=== PATIENT | female | born 1990 | race Caucasian/White ===

== ENCOUNTER 2018-11-24 19:29 | Emergency (ER) | payer SELFPAY ==
[2018-11-24 20:48] LABS: Urine Blood NEGATIVE (NEG); Urine Glucose NEGATIVE (NEG); Urine Protein NEGATIVE (NEG); Urine Specific Gravity >1.030 (1.005-1.030)
[2018-11-24] MEDS ORDERED: SMZ./TMP. 800/160 MG TABLET ONE (21:24)
[2018-11-24] MEDS ORDERED: KETOROLAC 30 MG/ML INJ ONE (21:24)
[2018-11-24] MEDS ORDERED: DOXYCYCLINE 100 MG CAP PO ONE (21:25)
--- NOTE | 2018-11-24 21:25 | ER ---
Nurse's Notes [facility] Name: Regine Goss Age: 28 yrs Sex: Female : 1990 Arrival Date: 11/24/2018 Time: 19:33 Bed 17 Private MD: Diagnosis: Headache;Cellulitis of head [any part, except face]-bites;Urinary tract infection, site not specified Presentation: 11/24 19:47 Presenting complaint: Patient states: "I've been having a lot of headaches, I'm hungry aj1 non-stop and my feet are swelling, but I can't get because my tubes are tied" LMP 10/22/18. Transition of care: patient was not received from another setting of care. Onset of symptoms was November 24, 2018. Risk Assessment: Do you want to hurt yourself or someone else? Patient reports no desire to harm self or others. Initial Sepsis Screen: Does the patient meet any 2 criteria? No. Patient's initial sepsis screen is negative. Does the patient have a suspected source of infection? No. Patient's initial sepsis screen is negative. Care prior to arrival: None. 19:47 Method Of Arrival: Ambulatory aj1 19:47 Acuity: ROHIT 3 aj1 Triage Assessment: 19:48 Headache History: Denies prior headaches. General: Appears in no apparent distress. aj1 uncomfortable, Behavior is calm, cooperative, appropriate for age. Pain: Complains of pain in forehead and occipital area Pain currently is 8 out of 10 on a pain scale. Pain began 2 weeks Also complains of no other associated symptoms. Neuro: Level of Consciousness is awake, alert, obeys commands, Oriented to person, place, time, situation, Moves all extremities. Full function Gait is steady, Speech is normal, Facial symmetry appears normal, Reports headache. Cardiovascular: Patient's skin is warm and dry. Respiratory: Airway is patent Respiratory effort is even, unlabored, Respiratory pattern is regular, symmetrical. 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 - Social history:: Smoking status: Patient uses tobacco products, 1-2 cigarettes per day. - Ebola Screening: : Patient denies travel to an Ebola-affected area in the 21 days before illness onset. - Family history:: not pertinent. Screenin:47 Abuse screen: Denies threats or abuse. Nutritional screening: No deficits noted. jd3 Tuberculosis screening: No symptoms or risk factors identified. Fall Risk Ambulatory Aid- None/Bed Rest/Nurse Assist (0 pts). Gait- Normal/Bed Rest/Wheelchair (0 pts) Mental Status- Oriented to own ability (0 pts). Total Martin Fall Scale indicates No Risk (0-24 pts). Assessment: 20:46 General: Appears in no apparent distress. uncomfortable, Behavior is calm, cooperative, jd3 appropriate for age. Pain: Complains of pain in head Quality of pain is described as aching, pressure. Neuro: Level of Consciousness is awake, alert, obeys commands, Oriented to person, place, time, situation, Moves all extremities. Full function Pupils are PERRLA, Denies weakness blurred vision dizziness, numbness. Cardiovascular: Denies chest pain, Heart tones S1 S2 present Capillary refill < 3 seconds Patient's skin is warm and dry. Respiratory: Airway is patent Respiratory effort is even, unlabored, Respiratory pattern is regular, symmetrical, Breath sounds are clear bilaterally. Denies cough, shortness of breath. GI: Abdomen is round non-distended, Bowel sounds present X 4 quads. Abd is soft and non tender X 4 quads. Reports nausea, Patient currently denies diarrhea, vomiting. : No signs and/or symptoms were reported regarding the genitourinary system. EENT: No signs and/or symptoms were reported regarding the EENT system. Derm: Skin is intact, Skin is dry, Skin is normal, Skin temperature is warm. Musculoskeletal: Circulation, motion, and sensation intact. Range of motion: intact in all extremities. 21:50 Reassessment: Patient appears in no apparent distress at this time. Patient and/or jd3 family updated on plan of care and expected duration. Pain level reassessed. Patient is alert, oriented x 3, equal unlabored respirations, skin warm/dry/pink. Patient states feeling better. Patient states symptoms have improved. Vital Signs: 19:48 BP 113 / 72; Pulse 96; Resp 20; Temp 98.0; Pulse Ox 100% on R/A; Weight 70.31 kg (R); aj1 Height 5 ft. 9 in. (175.26 cm) (R); Pain 8/10; 19:48 Body Mass Index 22.89 (70.31 kg, 175.26 cm) aj ED Course: 19:33 Patient arrived in ED. ds1 19:48 Triage completed. aj1 19:50 Arm band placed on Patient placed in waiting room, Patient notified of wait time. aj1 20:39 Stuart Crystal MD is Attending Physician. barry 20:46 Reed Foster, DARIANA is Primary Nurse. jd3 20:48 Patient has correct armband on for positive identification. Bed in low position. Call jd3 light in reach. Side rails up X 1. 21:49 No provider procedures requiring assistance completed. Patient did not have IV access jd3 during this emergency room visit. Administered Medications: 21:30 Drug: TORadol 60 mg Route: IM; Site: right gluteus; jd3 21:49 Follow up: Response: No adverse reaction jd3 21:30 Drug: Bactrim (160 mg-800 mg (DS) 1 tablet Route: PO; jd3 21:49 Follow up: Response: No adverse reaction jd3 21:30 Drug: Doxycycline 200 mg Route: PO; jd3 21:49 Follow up: Response: No adverse reaction jd3 Outcome: 21:24 Discharge ordered by . barry 21:49 Discharged to home ambulatory. jd3 21:49 Condition: stable 21:49 Discharge instructions given to patient, Instructed on discharge instructions, follow up and referral plans. medication usage, Demonstrated understanding of instructions, follow-up care, medications, Prescriptions given X 3. 21:50 Patient left the ED. jd3 Signatures: Xiomy Gonzalez, RN RN aj1 Stuart Crystal MD MD cha Sanford, Demi ds1 Reed Foster RN RN jd3
--- NOTE | 2018-11-24 21:25 | EDPHYS ---
Physician Documentation [facility] Name: Regine Goss Age: 28 yrs Sex: Female : 1990 Arrival Date: 11/24/2018 Time: 19:33 Bed 17 Private MD: ED Physician Stuart Crystal HPI: 11/24 21:19 This 28 yrs old Female presents to ER via Ambulatory with complaints of barry Headache. 21:19 The patient complains of pain to the left side of the back of head, left occipital barry area, left base of the skull, right side of the back of head, right occipital area and right base of the skull. The patient describes the headache as aching. 21:19 unk. Onset: The symptoms/episode began/occurred 1 week(s) ago. The patient presents barry with cellulitis of the scalp. Possible cause(s): unknown. 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 - Social history:: Smoking status: Patient uses tobacco products, 1-2 cigarettes per day. - Ebola Screening: : Patient denies travel to an Ebola-affected area in the 21 days before illness onset. - Family history:: not pertinent. ROS: 21:19 Constitutional: Negative for fever, chills, and weight loss, Eyes: Negative for injury, barry pain, redness, and discharge, ENT: Negative for injury, pain, and discharge, Neck: Negative for injury, pain, and swelling, Cardiovascular: Negative for chest pain, palpitations, and edema, Respiratory: Negative for shortness of breath, cough, wheezing, and pleuritic chest pain, Abdomen/GI: Negative for abdominal pain, nausea, vomiting, diarrhea, and constipation, Back: Negative for injury and pain, : Negative for injury, bleeding, discharge, and swelling, MS/Extremity: Negative for injury and deformity, Psych: Negative for depression, anxiety, suicide ideation, homicidal ideation, and hallucinations, Allergy/Immunology: Negative for hives, rash, and allergies, Endocrine: Negative for neck swelling, polydipsia, polyuria, polyphagia, and marked weight changes, Hematologic/Lymphatic: Negative for swollen nodes, abnormal bleeding, and unusual bruising. 21:19 Skin: Positive for cellulitis. 21:19 Neuro: Positive for headache. Exam: 21:19 Constitutional: This is a well developed, well nourished patient who is awake, alert, barry and in no acute distress. Head/Face: Normocephalic, atraumatic. Eyes: Pupils equal round and reactive to light, extra-ocular motions intact. Lids and lashes normal. Conjunctiva and sclera are non-icteric and not injected. Cornea within normal limits. Periorbital areas with no swelling, redness, or edema. ENT: Nares patent. No nasal discharge, no septal abnormalities noted. Tympanic membranes are normal and external auditory canals are clear. Oropharynx with no redness, swelling, or masses, exudates, or evidence of obstruction, uvula midline. Mucous membranes moist. Neck: Trachea midline, no thyromegaly or masses palpated, and no cervical lymphadenopathy. Supple, full range of motion without nuchal rigidity, or vertebral point tenderness. No Meningismus. Chest/axilla: Normal chest wall appearance and motion. Nontender with no deformity. No lesions are appreciated. Cardiovascular: Regular rate and rhythm with a normal S1 and S2. No gallops, murmurs, or rubs. Normal PMI, no JVD. No pulse deficits. Respiratory: Lungs have equal breath sounds bilaterally, clear to auscultation and percussion. No rales, rhonchi or wheezes noted. No increased work of breathing, no retractions or nasal flaring. Abdomen/GI: Soft, non-tender, with normal bowel sounds. No distension or tympany. No guarding or rebound. No evidence of tenderness throughout. Back: No spinal tenderness. No costovertebral tenderness. Full range of motion. MS/ Extremity: Pulses equal, no cyanosis. Neurovascular intact. Full, normal range of motion. Neuro: Awake and alert, GCS 15, oriented to person, place, time, and situation. Cranial nerves II-XII grossly intact. Motor strength 5/5 in all extremities. Sensory grossly intact. Cerebellar exam normal. Normal gait. Psych: Awake, alert, with orientation to person, place and time. Behavior, mood, and affect are within normal limits. 21:19 Skin: cellulitis, that is minimal, scalp folliculitis, occipital region. 21:27 Neck: ROM/movement: is normal, no acute changes, Meningeal signs: are not present, [facility] Kernig's sign is negative, Brudzinski's sign is negative. Vital Signs: 19:48 BP 113 / 72; Pulse 96; Resp 20; Temp 98.0; Pulse Ox 100% on R/A; Weight 70.31 kg (R); aj1 Height 5 ft. 9 in. (175.26 cm) (R); Pain 8/10; 19:48 Body Mass Index 22.89 (70.31 kg, 175.26 cm) aj1 MDM: 20:39 Patient medically screened. [facility] 21:23 Data reviewed: vital signs, nurses notes, lab test result(s), urinalysis. [facility] 11/24 20:41 Order name: Urine Dipstick--Ancillary (enter results); Complete Time: 21:16 mt 11/24 20:41 Order name: Urine --Ancillary (enter results); Complete Time: 21:16 mt Administered Medications: 21:30 Drug: TORadol 60 mg Route: IM; Site: right gluteus; jd3 21:49 Follow up: Response: No adverse reaction [facility] 21:30 Drug: Bactrim (160 mg-800 mg (DS) 1 tablet Route: PO; jd3 21:49 Follow up: Response: No adverse reaction jd3 21:30 Drug: Doxycycline 200 mg Route: PO; jd3 21:49 Follow up: Response: No adverse reaction jd3 Disposition: 11/24/18 21:24 Discharged to Home. Impression: Headache, Cellulitis of head [any part, except face] - bites, Urinary tract infection, site not specified. - Condition is Stable. - Discharge Instructions: Cellulitis, Adult, General Headache Without Cause, Urinary Tract Infection, Adult, Urinary Tract Infection, Adult, [id number], Folliculitis, General Headache Without Cause, [id number]. - Prescriptions for Ibuprofen 600 mg Oral Tablet - take 1 tablet by ORAL route every 8 hours As needed take with food; 21 tablet. Doxycycline Hyclate 100 mg Oral Tablet - take 1 tablet by ORAL route every 12 hours; 20 tablet. Bactrim DS 800- 160 mg Oral Tablet - take 1 tablet by ORAL route every 12 hours for 10 days; 20 tablet. - Medication Reconciliation Form, Thank You Letter, Antibiotic Education, Prescription Opioid Use form. - Follow up: Private Physician; When: 2 - 3 days; Reason: Recheck today's complaints, Continuance of care, Re-evaluation by your physician. - Problem is new. - Symptoms have improved. Signatures: Dispatcher [employer] EDXiomy France RN RN aj1 Stuart Crystal MD MD cha Davies, Jonathon, RN RN jd3 Corrections: (The following items were deleted from the chart) 21:50 21:24 11/24/2018 21:24 Discharged to Home. Impression: Headache; Cellulitis of head jd3 [any part, except face] - bites; Urinary tract infection, site not specified. Condition is Stable. Forms are Medication Reconciliation Form, Thank You Letter, Antibiotic Education, Prescription Opioid Use. Follow up: Private Physician; When: 2 - 3 days; Reason: Recheck today's complaints, Continuance of care, Re-evaluation by your physician. Problem is new. Symptoms have improved. barry
[2018-11-24 23:31] VITALS: BP 113/72; TEMP 98; O2SAT 100
== END 2018-11-24 21:50 | disposition home or self-care (01) ==
LOC: ER 19:29
DX: L03.811 Cellulitis of head [any part, except face] (principal); N39.0 Urinary tract infection, site not specified; Z88.0 Allergy status to penicillin; F17.210 Nicotine dependence, cigarettes, uncomplicated
CPT/HCPCS: 81003; 81025; 96372; 99283

== ENCOUNTER 2019-05-05 17:54 | Emergency (ER) | payer SELFPAY ==
--- OUTSIDE RECORDS SUMMARY | 2019-05-05 17:56 | XMS REPORT ---
:1990 [facility] Address [address] [place] [address] Care Team Providers Name Role Phone Unavailable Unavailable Unavailable Payers Payer Name Policy Type Policy Number Effective Date Expiration Date Problems This patient has no known problems. Allergies, Adverse Reactions, Alerts Allergy Name Allergy Status Severity Reaction(s) Onset Inactive Treating Comments Type Date Date Clinician Penicillins DA Active [facility] 2018-11 00:00:0 0 aspirin DA Active [facility] 2018-11 00:00:0 0 Penicillins DA Active [facility] 2013-07 00:00:0 0 aspirin DA Active [facility] 2013-07 00:00:0 0 Medications This patient has no known medications. Encounters Start End Encounter Admission Attending Care Care Encounter Date/Time Date/Time Type Type Clinicians Facility Department ID 2018-10-06 2018-10-06 Emergency E [facility] [id number] 03:41:00 03:41:00 Results Test Description Test Time Test Comments Text Results Atomic Results Result Comments URINE HCG TRIAGE (ER ONLY) 2018-12-02 16:13:00 Test Item Value Reference Range Comments URINE HCG TRIAGE (ER ONLY) (test code=HCGTRIAGE) Negative SPECIMEN COMMENTS: CLEAN CATCHUrine Test Result: NEGATIVEAre internal controls (presence of a control line & clear background) OK? YLot # of HCG Test Kit: [id number] Date of Kit: 04/24/2020Test Performed by: Charly Huerta Perfomed on: 12/02/18
--- NOTE | 2019-05-05 19:36 | EDPHYS ---
Physician Documentation [facility] Name: Regine Goss Age: 29 yrs Sex: Female : 1990 Arrival Date: 05/05/2019 Time: 17:56 Bed Treatment Private MD: ED Physician Bennett Burger HPI: 05/05 06:09 This 29 yrs old Female presents to ER via Ambulatory with complaints of Dog tw4 Bite. 06:09 The patient was bitten on the lateral aspect of right thigh. Onset: The tw4 symptoms/episode began/occurred just prior to arrival, today. Animal information: The animal was reported to appear healthy. Animal control has. Associated signs and symptoms: The patient has no apparent associated signs or symptoms. The patient has not experienced similar symptoms in the past. 06:09 Severity of symptoms: At their worst the symptoms were mild, in the emergency tw4 department the symptoms are unchanged. 06:09 Secondary to the bite the patient reports a laceration, that is superficial. 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 - Social history:: Smoking status: Patient reports the use of cigarette tobacco products, smokes one-half pack cigarettes per day. ROS: 05/05 06:09 Constitutional: Negative for fever, chills, and weight loss, Eyes: Negative for injury, tw4 pain, redness, and discharge, Cardiovascular: Negative for chest pain, palpitations, and edema, Respiratory: Negative for shortness of breath, cough, wheezing, and pleuritic chest pain, Abdomen/GI: Negative for abdominal pain, nausea, vomiting, diarrhea, and constipation, Back: Negative for injury and pain, Neuro: Negative for headache, weakness, numbness, tingling, and seizure. Skin: Positive for laceration(s). Exam: 06:09 Constitutional: This is a well developed, well nourished patient who is awake, alert, tw4 and in no acute distress. Head/Face: Normocephalic, atraumatic. Chest/axilla: Normal chest wall appearance and motion. Nontender with no deformity. No lesions are appreciated. Cardiovascular: Regular rate and rhythm with a normal S1 and S2. No gallops, murmurs, or rubs. Normal PMI, no JVD. No pulse deficits. Respiratory: Lungs have equal breath sounds bilaterally, clear to auscultation and percussion. No rales, rhonchi or wheezes noted. No increased work of breathing, no retractions or nasal flaring. Abdomen/GI: Soft, non-tender, with normal bowel sounds. No distension or tympany. No guarding or rebound. No evidence of tenderness throughout. Back: No spinal tenderness. No costovertebral tenderness. Full range of motion. MS/ Extremity: Pulses equal, no cyanosis. Neurovascular intact. Full, normal range of motion. 06:09 Skin: injury, laceration(s), the wound is approximately 8 cm(s), with a depth of .25 cm(s), of the lateral aspect of right thigh. Vital Signs: 05/04 18:22 BP 112 / 70; Pulse 101; Resp 15; Temp 98.4(TE); Pulse Ox 100% on R/A; Weight 79.38 kg; ss Height 5 ft. 9 in. (175.26 cm); Pain 8/10; 20:23 BP 128 / 68; Pulse 84; Resp 17 S; Pulse Ox 99% on R/A; jd3 18:22 Body Mass Index 25.84 (79.38 kg, 175.26 cm) ss Laceration: 05/05 06:09 Wound Repair of 8cm ( 3.1in ) subcutaneous laceration to lateral aspect of right thigh. tw4 Distal neuro/vascular/tendon intact. Anesthesia: Local anesthetic administered with 5 mls of 1% lidocaine. Wound prep: Moderate cleansing by me. Skin closed with 6 1-0 [place] using simple sutures and sterile technique. Dressed with Bacitracin, Kerlix. Patient tolerated well. MDM: 05/04 19:15 Patient medically screened. tw4 05/05 06:09 Differential diagnosis: superficial laceration. Data reviewed: vital signs, nurses tw4 notes. Data interpreted: Pulse oximetry: Interpretation: normal. Counseling: I had a detailed discussion with the patient and/or guardian regarding: the historical points, exam findings, and any diagnostic results supporting the discharge/admit diagnosis. Special discussion: I discussed with the patient/guardian in detail that at this point there is no indication for admission to the hospital. It is understood, however, that if the symptoms persist or worsen the patient needs to return immediately for re-evaluation. 06:09 Rabies Status: Rabies immunization is not indicated. 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 Exp: bb 01/15/2021. Lot #: [id number]. } Route: IM; Site: right deltoid; 20:27 Follow up: Response: No adverse reaction jd3 20:05 Drug: Lidocaine (1 %) 1 vials Volume: 20 ml; Route: Infiltration; jd3 20:28 Follow up: Response: No adverse reaction jd3 Disposition: 05/05/19 19:36 Discharged to Home. Impression: Bitten by dog, Laceration of other specified muscles, fascia and tendons at thigh level. - Condition is Stable. - Discharge Instructions: Animal Bite. - Prescriptions for Cleocin 300 mg Oral Capsule - take 1 capsule by ORAL route every 6 hours for 10 days; 40 capsule. Ibuprofen 800 mg Oral Tablet - take 1 tablet by ORAL route every 8 hours As needed take with food; 30 tablet. - Medication Reconciliation Form, Thank You Letter, Antibiotic Education, Prescription Opioid Use form. - Follow up: Private Physician; When: Upon discharge from the Emergency Department; Reason: Recheck today's complaints, Continuance of care, Re-evaluation by your physician. - Problem is new. - Symptoms have improved. Signatures: Carlota Mayer RN RN bb Smirch, Shelby, RN RN ss Davies, Jonathon, RN RN jd3 Wadley, Terrence, MD MD tw4 Corrections: (The following items were deleted from the chart) 20:28 19:36 05/05/2019 19:36 Discharged to Home. Impression: Bitten by dog; Laceration of jd3 other specified muscles, fascia and tendons at thigh level. Condition is Stable. Forms are Medication Reconciliation Form, Thank You Letter, Antibiotic Education, Prescription Opioid Use. Follow up: Private Physician; When: Upon discharge from the Emergency Department; Reason: Recheck today's complaints, Continuance of care, Re-evaluation by your physician. Problem is new. Symptoms have improved. tw4 05/05 06:11 06:09 Secondary to the bite the patient reports a laceration, tw4 tw4
--- NOTE | 2019-05-05 19:36 | ER ---
Nurse's Notes [facility] Name: Regine Goss Age: 29 yrs Sex: Female : 1990 Arrival Date: 05/05/2019 Time: 17:56 Bed Treatment Private MD: Diagnosis: Bitten by dog;Laceration of other specified muscles, fascia and tendons at thigh level Presentation: 05/04 18:22 Chief complaint: Patient states: dog bite to R leg that occurred 30 minutes ago. Pt has ss filed a report to [facility]. Coronavirus screen: The patient has NOT traveled to a country currently being monitored by the [facility] within the last 14 days. Proceed with normal triage procedures. Ebola Screen: Patient denies exposure to infectious person. Patient denies travel to an Ebola-affected area in the 21 days before illness onset. Initial Sepsis Screen: Does the patient meet any 2 criteria? No. Patient's initial sepsis screen is negative. Does the patient have a suspected source of infection? No. Patient's initial sepsis screen is negative. Risk Assessment: Do you want to hurt yourself or someone else? Patient reports no desire to harm self or others. 18:22 Method Of Arrival: Ambulatory ss 18:22 Acuity: ROHIT 4 ss 20:25 Onset of symptoms was May 05, 2019. jd3 Triage Assessment: 18:24 Bite description: bite sustained to right calf is from animal, by a dog. General: ss Appears unkempt, Behavior is cooperative, drowsy, Pt is falling asleep during triage. . Respiratory: Respiratory effort is even, unlabored. 20:24 Bite description: animal information: vaccination(s) is unknown. 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 - Social history:: Smoking status: Patient reports the use of cigarette tobacco products, smokes one-half pack cigarettes per day. Screenin:24 Abuse screen: Denies threats or abuse. Nutritional screening: No deficits noted. jd3 Tuberculosis screening: No symptoms or risk factors identified. Fall Risk Ambulatory Aid- None/Bed Rest/Nurse Assist (0 pts). Gait- Normal/Bed Rest/Wheelchair (0 pts) Mental Status- Oriented to own ability (0 pts). Total Martin Fall Scale indicates No Risk (0-24 pts). Assessment: 18:24 Reassessment: No active bleeding noted. ss 20:09 General: Appears in no apparent distress. uncomfortable, Behavior is calm, cooperative, jd3 appropriate for age. Pain: Complains of pain in right calf Quality of pain is described as aching, tender. Neuro: Level of Consciousness is awake, alert, obeys commands, Oriented to person, place, time, situation. Cardiovascular: Capillary refill < 3 seconds Thorax. Respiratory: Airway is patent Respiratory effort is even, unlabored, Respiratory pattern is regular, symmetrical. GI: No signs and/or symptoms were reported involving the gastrointestinal system. : No signs and/or symptoms were reported regarding the genitourinary system. EENT: No signs and/or symptoms were reported regarding the EENT system. Derm: Skin is intact, Skin is dry, Skin is normal, Skin temperature is warm. Musculoskeletal: Circulation, motion, and sensation intact. Range of motion: intact in all extremities. Injury Description: Bite sustained to right calf caused by a dog, is from animal. 20:24 Reassessment: Patient appears in no apparent distress at this time. Patient and/or jd3 family updated on plan of care and expected duration. Pain level reassessed. Patient is alert, oriented x 3, equal unlabored respirations, skin warm/dry/pink. Patient states feeling better. Vital Signs: 18:22 BP 112 / 70; Pulse 101; Resp 15; Temp 98.4(TE); Pulse Ox 100% on R/A; Weight 79.38 kg; ss Height 5 ft. 9 in. (175.26 cm); Pain 8/10; 20:23 BP 128 / 68; Pulse 84; Resp 17 S; Pulse Ox 99% on R/A; jd3 18:22 Body Mass Index 25.84 (79.38 kg, 175.26 cm) ED Course: 17:56 Patient arrived in ED. ag5 18:23 Triage completed. ss 18:23 Arm band placed on right wrist. ss 19:14 Bennett Burger MD is Attending Physician. tw4 19:45 Reed Foster, RN is Primary Nurse. jd3 20:24 Patient has correct armband on for positive identification. Bed in low position. Call jd3 light in reach. Side rails up X 1. 20:25 Assist provider with laceration repair on right calf that was between 2.6 to 7.5 cm jd3 using monica. Set up tray. Performed by Bennett Burger MD Dressed with 4X4s, Patient tolerated well. Patient did not have IV access during this emergency room visit. 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 Exp: bb 01/15/2021. Lot #: [id number]. } Route: IM; Site: right deltoid; 20:27 Follow up: Response: No adverse reaction jd3 20:05 Drug: Lidocaine (1 %) 1 vials Volume: 20 ml; Route: Infiltration; jd3 20:28 Follow up: Response: No adverse reaction jd3 Outcome: 19:36 Discharge ordered by . tw4 20:25 Discharged to home ambulatory. jd3 20:25 Condition: stable 20:25 Discharge instructions given to patient, Instructed on discharge instructions, follow up and referral plans. medication usage, Demonstrated understanding of instructions, follow-up care, medications, Prescriptions given X 2. 20:28 Patient left the ED. jd3 Signatures: Carlota Mayer RN RN bb Smirch, Shelby, RN RN ss Davies, Jonathon, DARIANA RN Bennett Ledezma MD MD tw4 Farooq Valdivia 5 Corrections: (The following items were deleted from the chart) 20:27 20:25 No provider procedures requiring assistance completed. jd3 jd3
[2019-05-05] MEDS ORDERED: IBUPROFEN 400 MG TAB ONE (19:56)
[2019-05-05] MEDS ORDERED: LIDOCAINE 1% MPF 30 ML VIAL ONE (19:56)
[2019-05-05] MEDS ORDERED: TETANUS & DIPHTHERIA TOX,ADULT 0.5 ML VIAL ONE (19:56)
[2019-05-05 21:08] VITALS: BP 128/68; O2SAT 99
[2019-05-05 21:10] VITALS: TEMP 98.4
== END 2019-05-05 20:28 | disposition home or self-care (01) ==
LOC: ER 17:54
PROC: 0JQL0ZZ Repair Right Upper Leg Subcutaneous Tissue and Fascia, Open Approach (ICD-10-PCS; principal; 2019-05-05)
DX: S71.151A Open bite, right thigh, initial encounter (principal); S76.821A Laceration of other specified muscles, fascia and tendons at thigh level, right thigh, initial encounter; W54.0XXA Bitten by dog, initial encounter; Y93.9 Activity, unspecified; Y92.9 Unspecified place or not applicable; Z23 Encounter for immunization
CPT/HCPCS: 90471; 90714; 99283

== ENCOUNTER 2019-05-13 | Emergency (ER) | payer SELFPAY ==
--- OUTSIDE RECORDS SUMMARY | 2019-05-13 11:53 | XMS REPORT ---
:1990 [facility] Address [address] [place] [address] Care Team Providers Name Role Phone Unavailable Unavailable Unavailable Payers Payer Name Policy Type Policy Number Effective Date Expiration Date Problems This patient has no known problems. Allergies, Adverse Reactions, Alerts Allergy Name Allergy Status Severity Reaction(s) Onset Inactive Treating Comments Type Date Date Clinician Penicillins DA Active SC 2018-11 00:00:0 0 aspirin DA Active SC 2018-11 00:00:0 0 Penicillins DA Active SC 2013-07 00:00:0 0 aspirin DA Active SC 2013-07 00:00:0 0 Medications This patient has no known medications. Encounters Start End Encounter Admission Attending Care Care Encounter Date/Time Date/Time Type Type Clinicians Facility Department ID 2018-10-06 2018-10-06 Emergency E [facility] [id number] 03:41:00 03:41:00 Results Test Description Test Time Test Comments Text Results Atomic Results Result Comments URINE HCG TRIAGE (ER ONLY) 2018-12-02 16:13:00 Test Item Value Reference Range Comments URINE HCG TRIAGE (ER ONLY) (test code=HCGTRIAGE) Negative SPECIMEN COMMENTS: CLEAN CATCHUrine Test Result: NEGATIVEAre internal controls (presence of a control line & clear background) OK? YLot # of HCG Test Kit: [id number] Date of Kit: 04/24/2020Test Performed by: Charly Huerta Perfomed on: 12/02/18
--- NOTE | 2019-05-13 12:13 | EDPHYS ---
Physician Documentation [facility] Name: Regine Goss Age: 29 yrs Sex: Female : 1990 Arrival Date: 05/13/2019 Time: 11:51 Bed Waiting Private MD: ED Physician Alan Winter HPI: 05/12 13:32 This 29 yrs old Female presents to ER via Ambulatory with complaints of kb Staple Removal. 13:32 The patient has monica on the right calf. Previous treatment: The patient was kb initially treated 7 day(s) ago, the care was rendered at [facility], Outpatient prescription(s): The patient was given prescription(s) for clindamycin. Sutures/monica progress: The patient has no c/o's. The wound is well-healing with no redness, swelling, discharge, or dehiscence reported. The patient has not experienced similar symptoms in the past. The patient has been recently seen at the [facility] Emergency Department. Pt had monica place to right calf 7 days ago and wants them removed. Reports she pulls on them every time she puts pants on so she would just rather them be removed. Historical: - Allergies: 12:09 Aspirin; ss 12:09 PENICILLINS; ss - PSHx: 12:09 Tubal ligation; ss - Immunization history:: Adult Immunizations up to date. ROS: 13:31 Constitutional: Negative for fever, chills, and weight loss, ENT: Negative for injury, kb pain, and discharge, Neck: Negative for injury, pain, and swelling, Cardiovascular: Negative for chest pain, palpitations, and edema, Respiratory: Negative for shortness of breath, cough, wheezing, and pleuritic chest pain, Abdomen/GI: Negative for abdominal pain, nausea, vomiting, diarrhea, and constipation, Back: Negative for injury and pain, MS/Extremity: Negative for injury and deformity, Neuro: Negative for headache, weakness, numbness, tingling, and seizure. 13:31 Skin: Positive for monica in place. Exam: 13:31 Constitutional: This is a well developed, well nourished patient who is awake, alert, kb and in no acute distress. Head/Face: Normocephalic, atraumatic. Chest/axilla: Normal chest wall appearance and motion. Nontender with no deformity. No lesions are appreciated. Cardiovascular: Regular rate and rhythm with a normal S1 and S2. No gallops, murmurs, or rubs. Normal PMI, no JVD. No pulse deficits. Respiratory: Lungs have equal breath sounds bilaterally, clear to auscultation and percussion. No rales, rhonchi or wheezes noted. No increased work of breathing, no retractions or nasal flaring. Abdomen/GI: Soft, non-tender, with normal bowel sounds. No distension or tympany. No guarding or rebound. No evidence of tenderness throughout. Back: No spinal tenderness. No costovertebral tenderness. Full range of motion. MS/ Extremity: Pulses equal, no cyanosis. Neurovascular intact. Full, normal range of motion. Neuro: Awake and alert, GCS 15, oriented to person, place, time, and situation. Cranial nerves II-XII grossly intact. Motor strength 5/5 in all extremities. Sensory grossly intact. Cerebellar exam normal. Normal gait. 13:31 Skin: Wound recheck: Staple laceration closure: no drainage, no swelling, mild dehiscence, mild erythema. Vital Signs: 12:07 BP 119 / 73; Pulse 95; Resp 16; Temp 98.0(TE); Pulse Ox 100% on R/A; Weight 79.38 kg; ss Height 5 ft. 1 in. (154.94 cm); Pain 0/10; 12:07 Body Mass Index 33.07 (79.38 kg, 154.94 cm) Procedures: 13:31 Suture/Staple removal: Removed 6 monica, from right calf, site appears reddened, kb Patient tolerated well. MDM: 12:12 Patient medically screened. kb 13:31 Data reviewed: vital signs, nurses notes. Data interpreted: Pulse oximetry: on room air kb is 100 %. Interpretation: normal. Counseling: I had a detailed discussion with the patient and/or guardian regarding: the historical points, exam findings, and any diagnostic results supporting the discharge/admit diagnosis, the need for outpatient follow up, a family practitioner, to return to the emergency department if symptoms worsen or persist or if there are any questions or concerns that arise at home. Administered Medications: No medications were administered Disposition: 13:38 Co-signature as Attending Physician, Alan Winter MD I agree with the assessment and kdr plan of care. Disposition: 05/13/19 12:12 Discharged to Home. Impression: Encounter for removal of sutures - monica. - Condition is Stable. - Discharge Instructions: Suture Removal, Care After. - Medication Reconciliation Form, Thank You Letter, Antibiotic Education, Prescription Opioid Use form. - Follow up: Private Physician; When: 2 - 3 days; Reason: Recheck today's complaints, Continuance of care, Re-evaluation by your physician. Follow up: Emergency Department; When: As needed; Reason: Worsening of condition. Signatures: Keyla Wrgiht, PIGS FEET CLEANER-C PIGS FEET CLEANER-Ckb Alan Winter MD MD kdr Fide Corrigan, RN RN ss Corrections: (The following items were deleted from the chart) 12:17 12:12 05/13/2019 12:12 Discharged to Home. Impression: Encounter for removal of sutures ss - monica. Condition is Stable. Forms are Medication Reconciliation Form, Thank You Letter, Antibiotic Education, Prescription Opioid Use. Follow up: Private Physician; When: 2 - 3 days; Reason: Recheck today's complaints, Continuance of care, Re-evaluation by your physician. Follow up: Emergency Department; When: As needed; Reason: Worsening of condition. kb
--- NOTE | 2019-05-13 12:13 | ER ---
Nurse's Notes [facility] Name: Regine Goss Age: 29 yrs Sex: Female : 1990 Arrival Date: 05/13/2019 Time: 11:51 Bed Waiting Private MD: Diagnosis: Encounter for removal of sutures-monica Presentation: 05/12 12:07 Chief complaint: Patient states: here to have monica removed from R lower leg. Pt ss reports it has been 10 days since she has had them placed. Coronavirus screen: The patient has NOT traveled to a country currently being monitored by the [facility] within the last 14 days. Proceed with normal triage procedures. Ebola Screen: Patient denies exposure to infectious person. Patient denies travel to an Ebola-affected area in the 21 days before illness onset. Initial Sepsis Screen: Does the patient meet any 2 criteria? No. Patient's initial sepsis screen is negative. Does the patient have a suspected source of infection? No. Patient's initial sepsis screen is negative. Risk Assessment: Do you want to hurt yourself or someone else? Patient reports no desire to harm self or others. 12:07 Method Of Arrival: Ambulatory ss 12:07 Acuity: ROHIT 5 ss Historical: - Allergies: 12:09 Aspirin; ss 12:09 PENICILLINS; ss - PSHx: 12:09 Tubal ligation; ss - Immunization history:: Adult Immunizations up to date. Screenin:09 Abuse screen: Denies threats or abuse. Denies injuries from another. Nutritional ss screening: No deficits noted. Tuberculosis screening: Never had TB. Fall Risk None identified. Assessment: 12:09 General: Appears in no apparent distress. comfortable. Pain: Denies pain. Neuro: Level ss of Consciousness is awake, alert, obeys commands. Respiratory: Airway is patent Respiratory effort is even, unlabored, Respiratory pattern is regular, symmetrical. EENT: Oral mucosa is moist. Derm: Skin is intact, is healthy with good turgor, Skin is dry, Skin is pink, warm \\T\\ dry. normal. Musculoskeletal: Circulation, motion, and sensation intact. Range of motion: intact in all extremities, Swelling absent. Vital Signs: 12:07 BP 119 / 73; Pulse 95; Resp 16; Temp 98.0(TE); Pulse Ox 100% on R/A; Weight 79.38 kg; ss Height 5 ft. 1 in. (154.94 cm); Pain 0/10; 12:07 Body Mass Index 33.07 (79.38 kg, 154.94 cm) ss ED Course: 11:51 Patient arrived in ED. as 11:56 Keyla Wright FNP-C is PHCP. kb 11:56 Alan Winter MD is Attending Physician. kb 12:09 Triage completed. ss 12:09 Arm band placed on right wrist. ss 12:09 Patient has correct armband on for positive identification. Placed in gown. Bed in low ss position. 12:09 No provider procedures requiring assistance completed. Patient did not have IV access ss during this emergency room visit. Dressings: Kerlix X 1; right leg Steri strips 1/2 " X 1; right leg. Removal of monica removed by Keyla Wright NP. Administered Medications: No medications were administered Outcome: 12:11 Discharged to home ambulatory. ss 12:11 Condition: good 12:11 Discharge instructions given to patient, family, Instructed on discharge instructions, follow up and referral plans. medication usage, Demonstrated understanding of instructions, follow-up care, wound care. 12:12 Discharge ordered by MD. kb 12:17 Patient left the ED. ss Signatures: Keyla Wright FNP-C FNP-Ckb Martinez, Amelia as Smirch, Shelby, RN RN ss
== END 2019-05-13 12:17 | disposition home or self-care (01) ==
DX: Z48.02 Encounter for removal of sutures (principal)
CPT/HCPCS: 99281